=== PATIENT | female | born 1955 | race Caucasian/White ===

== ENCOUNTER 2022-11-24 14:31 | Outpatient (CLI) | payer MEDICARE, BC | END 2022-11-24 14:32 | disposition home or self-care (01) | LOC: CSHULT 14:31 | PROVIDERS: ATTEND Family Medicine | DX: M67.922 Unspecified disorder of synovium and tendon, left upper arm (principal) | CPT/HCPCS: 76999 ==

== ENCOUNTER 2023-04-19 08:48 | Outpatient (CLI) | payer MEDICARE, BC | END 2023-04-19 08:49 | disposition home or self-care (01) | LOC: CSHMRI 08:48 | PROVIDERS: ATTEND Family Medicine | DX: M25.512 Pain in left shoulder (principal); M75.112 Incomplete rotator cuff tear or rupture of left shoulder, not specified as traumatic; M94.8X1 Other specified disorders of cartilage, shoulder; M19.012 Primary osteoarthritis, left shoulder; M25.412 Effusion, left shoulder ==